=== PATIENT | male | born 1970 | race American Indian/Alaskan Native ===

== ENCOUNTER 2017-12-22 20:19 | Emergency (ER) | payer SELFPAY ==
[2017-12-22 20:34] VITALS: BP 129/85; PULSE 78; RESP 20; TEMP 98.2; O2SAT 99
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
== END 2017-12-22 21:48 | disposition home or self-care (01) ==
LOC: C.ER 20:19
DX: S06.0X0A Concussion without loss of consciousness, initial encounter (principal); S16.1XXA Strain of muscle, fascia and tendon at neck level, initial encounter; V49.50XA Passenger injured in collision with unspecified motor vehicles in traffic accident, initial encounter

== ENCOUNTER 2018-03-23 13:42 | Emergency (ER) | payer OTHER ==
[2018-03-23 13:59] VITALS: BMI 23.6
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
--- NOTE | 2018-03-23 16:38 | RAD ---
Date of service: 03/23/2018 PROCEDURE: Cervical Spine Radiographs. HISTORY: Pain. COMPARISON: None available. FINDINGS: BONES: Vertebral bodies are maintained in height. Normal alignment is maintained. The atlantoaxial articulation and odontoid process are intact. DISC SPACES: There is narrowing of the C 4-5 and C5-6 intervertebral disc spaces consistent with degenerative disc disease. The remaining intervertebral disc spaces are maintained in height. SOFT TISSUES: Normal. No prevertebral soft tissue swelling. OTHER FINDINGS: None. IMPRESSION: No fracture/dislocation. Degenerative disc disease noted at C4-5 and C5-6.
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
[2018-03-23 17:16] VITALS: BP 130/74; PULSE 71; RESP 16; TEMP 97.9
[2018-03-25 15:02] VITALS: O2SAT 99
== END 2018-03-23 17:15 | disposition home or self-care (01) ==
LOC: C.ER 13:42
DX: S80.12XA Contusion of left lower leg, initial encounter (principal); T14.8XXA Other injury of unspecified body region, initial encounter; V13.4XXA Pedal cycle driver injured in collision with car, pick-up truck or van in traffic accident, initial encounter; Y93.55 Activity, bike riding